=== PATIENT | male | born 1965 | race Caucasian/White ===

== ENCOUNTER → 2016-06-09 | Outpatient (REF) | payer BC ==
[2016-06-09 14:15] LABS: FREE T4 1.09 NG/DL (0.76-1.46)
== END ==
LOC: M LAB REF 13:10
PROVIDERS: ATTEND Internal Medicine Pulmonary Disease
DX: R06.00 Dyspnea, unspecified (principal)

== ENCOUNTER → 2016-07-09 | Outpatient (CLI) | payer BC ==
[~2016-07-09] MED LIST: METHACHOLINE KIT (J7674) INH ONE
--- NOTE | 2016-07-09 11:32 | PFTRPT ---
BRONCHOPROVOCATION TEST (METHACHOLINE CHALLENGE) DATE OF PROCEDURE: 07/09/2016 ORDERED BY: Bipin Skelton DO Study of excellent technical quality. Under protocol, methacholine was administered. Even after a maximum dose of 25 mg or 188.875 CDUs, no provocation dose ever achieved. IMPRESSION: Negative methacholine challenge study. MTDD
--- NOTE | 2016-07-10 10:50 | METHCHAL ---
DATE OF PROCEDURE: 07/09/2016 ORDERED BY: Bipin Skelton DO Study of excellent technical quality. Under protocol, methacholine was administered. Even after a maximum dose of 25 mg or 188.875 CDUs, no provocation dose ever achieved. IMPRESSION: Negative methacholine challenge study.
== END ==
LOC: M CARPUL 10:24
PROVIDERS: ATTEND Internal Medicine Pulmonary Disease
DX: R06.00 Dyspnea, unspecified (principal)

== ENCOUNTER → 2018-03-12 | Outpatient (CLI) | payer BC ==
[2018-03-12 16:09] LABS: HEMATOCRIT 44.5 % (42.0-52.0); HEMOGLOBIN 15.3 g/dl (13.5-17.5); MEAN CORPUSCULAR HEMOGLOBIN 30.5 pg (27.0-33.0); MEAN CORPUSCULAR HGB CONC 34.4 g/dl (32.0-36.5); MEAN CORPUSCULAR VOLUME 88.6 fl (80.0-96.0); PLATELET COUNT, AUTOMATED 295 10^3/uL (150-450); RED BLOOD COUNT 5.02 10^6/uL (4.30-6.10); WHITE BLOOD COUNT 8.7 10^3/uL (4.0-10.0)
[2018-03-12 16:20] LABS: INR 0.89; PROTHROMBIN TIME 12.1 SECONDS (12.1-14.4)
[2018-03-12 16:29] LABS: ALBUMIN 4.1 GM/DL (3.2-5.2); ALBUMIN/GLOBULIN RATIO 1.32 (1.00-1.93); ALKALINE PHOSPHATASE 64 U/L (45-117); ALT/SGPT 32 U/L (12-78); ANION GAP 6 MEQ/L (8-16); AST/SGOT 18 U/L (7-37); BILIRUBIN,TOTAL 0.2 MG/DL (0.2-1.0); BLOOD UREA NITROGEN 17 MG/DL (7-18); CALCIUM LEVEL 8.6 MG/DL (8.5-10.1); CARBON DIOXIDE LEVEL 31 MEQ/L (21-32); CHLORIDE LEVEL 105 MEQ/L (98-107); CREATININE FOR GFR 0.92 MG/DL (0.70-1.30); GLOMERULAR FILTRATION RATE > 60.0 (>56); GLUCOSE, FASTING 85 MG/DL (70-100); POTASSIUM SERUM 4.2 MEQ/L (3.5-5.1); SODIUM LEVEL 142 MEQ/L (136-145); TOTAL PROTEIN 7.2 GM/DL (6.4-8.2)
[2018-03-12 18:02] LABS: ERYTHROCYTE SEDIMENTATION RATE 5 mm/hr (0-20)
== END ==
LOC: M LAB 14:02
DX: Z01.818 Encounter for other preprocedural examination (principal); R94.31 Abnormal electrocardiogram [ECG] [EKG]
CPT/HCPCS: 71046

== ENCOUNTER 2018-04-02 09:43 | Inpatient (IN) | payer BC ==
[2018-04-02] MEDS: ACETAMINOPHEN 500 MG TAB PO (10:00)
[2018-04-02] MEDS ORDERED: LIDOCAINE 2% INJ 100 MG/5 ML SDV (FOR ANES.) As Ordered (10:19)
[2018-04-02] MEDS ORDERED: fentaNYL 100 MCG/2 ML INJECTION (J3010) As Ordered ×2 (10:19→11:12)
[2018-04-02] MEDS ORDERED: MIDAZOLAM INJ 2 MG/2 ML VIAL (J2250) As Ordered ×2 (10:19→11:12)
[2018-04-02] MEDS ORDERED: PROPOFOL 200 MG/20 ML VIAL As Ordered (10:19)
[2018-04-02] MEDS: LR 1,000 ML IV ×3 (10:48→15:00)
[2018-04-02] MEDS: fentaNYL 100 MCG/2 ML INJECTION (J3010) IV (11:50)
[2018-04-02] MEDS: MIDAZOLAM INJ 2 MG/2 ML VIAL (J2250) IV (11:50)
[2018-04-02] MEDS ORDERED: ROCURONIUM BROMIDE 50 MG/5 ML VIAL As Ordered (12:05)
[2018-04-02] MEDS ORDERED: fentaNYL 250 MCG/5 ML INJECTION (J3010) As Ordered (13:03)
[2018-04-02] MEDS ORDERED: dexameTHASONE 4 MG/ML 1ML VIAL (J1100) As Ordered ×2 (13:14)
[2018-04-02] MEDS ORDERED: ONDANSETRON 4MG/2ML VIAL (J2405) As Ordered (13:14)
[2018-04-02] MEDS: EPINEPHrine INJ 1 MG/ML 1ML AMP As Ordered (13:14)
[2018-04-02] MEDS ORDERED: NEOSTIGMINE 10 MG/10 ML VIAL (J2710) As Ordered (13:14)
[2018-04-02] MEDS ORDERED: METOCLOPRAMIDE INJ 10MG/2ML VIAL (J2765) As Ordered (13:14)
[2018-04-02] MEDS ORDERED: KETOROLAC 60 MG/2 ML VIAL (J1885) As Ordered (13:14)
[2018-04-02] MEDS ORDERED: GLYCOPYRROLATE INJ 0.2 MG/ML 2 ML VIAL As Ordered ×2 (13:14→14:21)
[2018-04-02] MEDS: TRANEXAMIC ACID 100 MG/ML 10ML VIAL As Ordered (13:15)
[2018-04-02] MEDS: ceFAZolin 1GM INJ (J0690 PER 500MG) As Ordered (13:15)
[2018-04-02] MEDS: BUPIVACAINE HCL 0.25% 10 ML VIAL As Ordered (14:05)
[2018-04-02] MEDS: BUPIVACAINE LIPOSOME/PF 1.3% 20ML VIAL (13.3MG/ML)(EXPAREL)(C9290 PER1MG) As Ordered (14:06)
[2018-04-02] MEDS ORDERED: MORPHINE 1MG/ML IN 0.9% NACL 100ML IV BAG As Ordered (14:31)
[2018-04-02] MEDS ORDERED: ACETAMINOPHEN TAB 650MG DOSE (2X325MG) PO (15:00)
[2018-04-02] MEDS ORDERED: fentaNYL 100 MCG/2 ML INJECTION (J3010) IV (15:00)
[2018-04-02] MEDS: MORPHINE 1MG/ML IN 0.9% NACL 100ML IV BAG IV (15:00)
[2018-04-02] MEDS ORDERED: METOCLOPRAMIDE INJ 10MG/2ML VIAL (J2765) IV (15:00)
[2018-04-02] MEDS ORDERED: ONDANSETRON 4MG/2ML VIAL (J2405) IV ×2 (15:00→15:15)
[2018-04-02] MEDS ORDERED: PERCOCET 5MG/325MG TAB PO (15:00)
[2018-04-02] MEDS ORDERED: FLEET ENEMA PR (15:00)
[2018-04-02] MEDS ORDERED: diphenhydrAMINE INJ 50MG/ML VIAL (J1200) IV (15:15)
[2018-04-02] MEDS ORDERED: NALOXONE INJ 0.4 MG/1 ML VIAL (J2310) IV (15:15)
[2018-04-02] MEDS ORDERED: EPIDURAL/PCA KEYS XX (15:15)
[2018-04-02] MEDS ORDERED: NALBUPHINE HCL 10 MG/ML AMP (J2300) IV (15:15)
[2018-04-02] MEDS ORDERED: ROPIvacaine 0.5% 30 ML INJECTION (J2795 PER 1MG) (16:07)
[2018-04-02] MEDS ORDERED: EPINEPHrine INJ 1 MG/ML 1ML AMP (16:07)
[2018-04-03] MEDS: LR 1,000 ML IV (01:41)
[2018-04-03 06:02] LABS: HEMATOCRIT 38.3 % (42.0-52.0); HEMOGLOBIN 13.5 g/dl (13.5-17.5); MEAN CORPUSCULAR HEMOGLOBIN 30.2 pg (27.0-33.0); MEAN CORPUSCULAR HGB CONC 35.2 g/dl (32.0-36.5); MEAN CORPUSCULAR VOLUME 85.7 fl (80.0-96.0); PLATELET COUNT, AUTOMATED 235 10^3/uL (150-450); RED BLOOD COUNT 4.47 10^6/uL (4.30-6.10); RED CELL DISTRIBUTION WIDTH 11.9 % (11.5-14.5); WHITE BLOOD COUNT 17.7 10^3/uL (4.0-10.0)
[2018-04-03 06:11] LABS: INR 0.97
[2018-04-03] MEDS ORDERED: PERCOCET 5MG/325MG TAB PO (06:15)
[2018-04-03] MEDS ORDERED: ONDANSETRON 4 MG TAB (S0181) PO (06:15)
[2018-04-03 06:26] LABS: ANION GAP 7 MEQ/L (8-16); BLOOD UREA NITROGEN 18 MG/DL (7-18); CALCIUM LEVEL 8.3 MG/DL (8.5-10.1); CARBON DIOXIDE LEVEL 27 MEQ/L (21-32); CHLORIDE LEVEL 107 MEQ/L (98-107); CREATININE FOR GFR 0.96 MG/DL (0.70-1.30); GLOMERULAR FILTRATION RATE > 60.0 (>56); GLUCOSE, FASTING 120 MG/DL (70-100); POTASSIUM SERUM 3.9 MEQ/L (3.5-5.1); SODIUM LEVEL 141 MEQ/L (136-145)
[2018-04-03] MEDS: MOM 30ML SUSPENSION UDC PO (09:11)
[2018-04-03] MEDS: SENOKOT S TAB PO (09:11)
[2018-04-03] MEDS: MIRALAX *UNIT DOSE* 17GM PACKET PO (09:11)
[2018-04-03] MEDS: PERCOCET 5MG/325MG TAB PO (09:12)
[2018-04-03] MEDS ORDERED: RIVAROXABAN 10 MG TAB (XARELTO) PO (18:00)
== END 2018-04-03 11:20 | disposition home or self-care (01) | DRG 302 ==
LOC: M OR 09:43 → M MS5PR 15:45
PROC: 0SRD0J9 Replacement of Left Knee Joint with Synthetic Substitute, Cemented, Open Approach (ICD-10-PCS; principal; 2018-04-02 12:37)
DX: M17.12 Unilateral primary osteoarthritis, left knee (principal); Z91.038 Other insect allergy status